=== PATIENT | female | born 1965 | race Caucasian/White ===

== ENCOUNTER → 2016-12-05 | Outpatient (CLI) | payer OTHER | LOC: RAD 16:52 | DX: M79.642 Pain in left hand (principal); S62.367A Nondisplaced fracture of neck of fifth metacarpal bone, left hand, initial encounter for closed fracture; X58.XXXA Exposure to other specified factors, initial encounter ==

== ENCOUNTER → 2016-12-11 | Outpatient (CLI) | payer OTHER | LOC: RAD 15:37 | DX: M79.642 Pain in left hand (principal); R05 Cough ==

== ENCOUNTER → 2016-12-25 | Outpatient (CLI) | payer OTHER | LOC: RAD 13:56 | DX: Z09 Encounter for follow-up examination after completed treatment for conditions other than malignant neoplasm (principal); S62.337D Displaced fracture of neck of fifth metacarpal bone, left hand, subsequent encounter for fracture with routine healing ==

== ENCOUNTER → 2017-01-15 | Outpatient (CLI) | payer OTHER | LOC: RAD 11:38 | DX: Z09 Encounter for follow-up examination after completed treatment for conditions other than malignant neoplasm (principal); S62.337D Displaced fracture of neck of fifth metacarpal bone, left hand, subsequent encounter for fracture with routine healing; J30.1 Allergic rhinitis due to pollen ==

== ENCOUNTER 2017-01-16 12:45 | Outpatient (RCR) | payer OTHER | END 2017-02-24 13:11 | disposition home or self-care (01) | LOC: OT 12:45 | DX: S62.337D Displaced fracture of neck of fifth metacarpal bone, left hand, subsequent encounter for fracture with routine healing (principal) ==

== ENCOUNTER → 2017-07-27 | Outpatient (CLI) | payer OTHER | LOC: RAD 12:32 | DX: R05 Cough (principal); Z97.8 Presence of other specified devices ==